=== PATIENT | female | born 1930 | race Caucasian/White ===

== ENCOUNTER → 2016-09-25 | Day surgery (SDC) | payer OTHER, MEDICARE ==
[~2016-09-25] VITALS: Ht 139.7 cm; Wt 72.6 kg
[~2016-09-25] MED LIST: ATORVASTATIN CA10 MG PO; AUGMENTIN 875 M1 TAB PO; AZOR 5 MG-20 MG1 TAB PO; BYSTOLIC 5MG5 MG PO; EXCEDRIN MIGRA1 EAC1 PO; FUROSEMIDE20 MG PO; GABAPENTIN TAB600 MG PO; GLIPIZIDE ER2.5 M1 PO; GLUCOTROL XL5 MG PO; JANUVIA50 M1 PO; LEVOTHYROXIN0.088 M1 PO; LISINOPRIL40 MG PO; MELOXICAM15 M1 PO; MELOXICAM15 MG PO; MULTIVITAMIN1 TAB PO; MYCOSTATIN SUS.60 ML PO; NORVASC 5MG TAB5 MG PO; OMEPRAZOLE20 M2 PO; PANTOPRAZOLE SO40 MG PO; PIOGLITAZONE HC1 TAB PO; PIOGLITAZONE-METFORM PO; PROLIA60 MG/1 ML; RECLAST5 MG/100 M IV; VITAMIN E400 I1 PO
--- NOTE | 2016-09-25 13:26 | Operative Report ---
Operative/Inv Procedure Report Surgery Date: 09/25/16 Name of Procedure: Cataract extraction lens implantation right eye Pre-Operative Diagnosis: Age-related cataract right eye 20/25 vision 20/60 glare vision Post-Operative Diagnosis: Same Estimated Blood Loss: none Surgeon/Senior Hr Business Partner: ALEX JUNG,EWA Giordano Anesthesia: local monitored anesthesi Complications: None Operative/Procedure Note Note: The patient was brought to the operating room standard monitoring equipment was attached the patient was prepped and draped in the usual fashion for intraocular surgery. A lid speculum was placed to retract the lids. The case was begun by making 2 partial-thickness corneal relaxing incisions at 85. A temporal incision with a 2.4 mm keratome. The eye was stabilized with a Gandhi ring during this incision. 1 mL of non-preserved lidocaine was introduced into the anterior chamber to provide anesthesia. The anterior chamber was then filled and deepened with viscoelastic. A curvilinear capsulorrhexis was achieved using a 30-gauge needle and is a cystotome and capsulorrhexis was finished using a Utrata forceps. A second or paracentesis incision was made temporally with a 1 mm MVR blade. The lens was then hydrodissected with balanced salt solution and found to be rotatable. The lens was emulsified using phacoemulsification and a modified four-quadrant cracking technique. The residual cortical material was removed using automated irrigation and aspiration and as much of the anterior capsular rim was cleaned as well as possible. The posterior capsule was cleaned first with the automated machine on a low setting and then manually with a Dani squeegee. The capsular bag was deepened with viscoelastic. The lens a Akreos AO60 20.5 Diopter placed into the bag under direct visualization and rotated so that the haptics were at 12 and 6:00. Viscoelastic was then removed from the eye by flushing it out and then by automated irrigation and aspiration. The eye was pressurized to a normal tone. 1/10 of a cc of vancomycin solution was introduced into the anterior chamber to provide antibiotic prophylaxis. The wounds were sealed by hydrating the stroma adjacent to them and the eye was left at a proper tone after the wounds were checked and found not to be leaking. The lid speculum was removed from the orbit. Antibiotic and steroid drops were placed on the eye and then the eye was shielded. Monitoring equipment was removed from the patient and the patient was removed from the operative suite to the holding area. The patient tolerated the procedure well and will be seen in the office tomorrow.
== END ==
LOC: STS 01:02
DX: H25.9 Unspecified age-related cataract (principal); E11.8 Type 2 diabetes mellitus with unspecified complications; Z79.84 Long term (current) use of oral hypoglycemic drugs; I10 Essential (primary) hypertension
CPT/HCPCS: J2250; V2632

== ENCOUNTER 2018-01-26 08:05 | Emergency (ER) | payer OTHER, MEDICARE ==
[~2018-01-26] VITALS: Ht 142.2 cm; Wt 63.5 kg
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
[2018-01-26 10:47] LABS: ABSOLUTE BASOPHIL COUNT 0 /CUMM (0.0-0.2); ABSOLUTE EOSINOPHIL COUNT 0 /CUMM (0.0-0.7); ABSOLUTE LYMPH COUNT 0.9 /CUMM (1.2-3.4); ABSOLUTE MONOCYTE COUNT 0.2 /CUMM (0.10-0.60); BASOPHIL % 0.1 % (0.0-2.0); EOSINOPHIL % 0.4 % (0-5); HEMATOCRIT 43.9 % (37-47); MEAN CORPUSCULAR HGB 31.6 PG (27.0-31.0); MEAN CORPUSCULAR VOLUME 95.8 FL (81.0-99.0); MEAN PLATELET VOLUME 7.1 FL (7.4-10.4); PLATELET COUNT 235 /CUMM (130-400); RBC DISTRIBUTION WIDTH 14.3 % (11.5-14.5); RED BLOOD CELL CT 4.58 /CUMM (4.20-5.40); WHITE BLOOD CELL COUNT 9.2 /CUMM (4.8-10.8)
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
[2018-01-26 11:10] LABS: GRANULOCYTE % 87.4 % (42.2-75.2)
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
[2018-01-26 18:38] VITALS: BP 184/90
== END 2018-01-26 18:40 | disposition short-term general hospital (02) ==
LOC: ERH 08:05
PROVIDERS: Physician Assistant Medical
DX: S12.000A Unspecified displaced fracture of first cervical vertebra, initial encounter for closed fracture (principal); S22.31XA Fracture of one rib, right side, initial encounter for closed fracture; R07.9 Chest pain, unspecified; M54.5 Low back pain; R51 Headache; I10 Essential (primary) hypertension; E11.9 Type 2 diabetes mellitus without complications
CPT/HCPCS: 72141; 74177; 81001; 93005; 93010; 96374; 96375; J0131